=== PATIENT | female | born 1950 | race Two or more races ===

== ENCOUNTER 2025-08-18 15:00 | Emergency (ER) | payer OTHER ==
[~2025-08-18] VITALS: Ht 166.4 cm; Wt 74.4 kg
[2025-08-18] MEDS ORDERED: ATORVASTATIN CA10 MG PO (17:58)
== END 2025-08-18 19:06 | disposition home or self-care (01) ==
LOC: ER 15:00
DX: M79.602 Pain in left arm (principal); T14.8XXA Other injury of unspecified body region, initial encounter